=== PATIENT | female | born 1985 | race Caucasian/White ===

== ENCOUNTER 2018-05-16 18:26 | Inpatient (IN) | payer SELFPAY ==
[2018-05-16 18:26] VITALS: BP 136/80; PULSE 97; RESP 20; TEMP 37.2; O2SAT 98; BMI 29.5
--- NOTE | 2018-05-16 18:49 | CT_ITS ---
STUDY: CT ABDOMEN AND PELVIS WITH CONTRAST REASON FOR EXAM: Female, 32 years old. Abdominal pain. Please assess for small bowel obstruction RADIATION DOSAGE (If Supplied By Facility): CTDIvol = ( 13.36 ) mGy, DLP = ( 926.40 ) mGycm TECHNIQUE: Transaxial images were obtained from the dome of the diaphragm to the symphysis pubis without oral contrast. 100ml ml of Isovue 300 contrast was administered. Sagittal and coronal images were reconstructed. Individualized dose optimization techniques were used for this CT. COMPARISON: August 23, 2016 CT abdomen and pelvis FINDINGS: Lung bases demonstrate no evidence for consolidative process. Subsegmental atelectasis in the lung bases. No pericardial effusion. Liver and spleen demonstrate no discrete mass. The portal vein is patent. The pancreas are within normal limits. The adrenal glands appear unremarkable. 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 Fecal loading of colonic loops. No free intraperitoneal air. There is submucosal edema and wall thickening of the distal ileum noted with adjacent inflammatory stranding suggestive of acute ileitis. Appendix is mildly dilated. Mild dilatation of the proximal to mid ileum due to narrowing of the distal ileum. Findings are most suggestive of inflammatory bowel disease. Uterus appears prominent with somewhat bicornuate appearance. Please correlate with sonography. Small amount of free fluid in the pelvis. Osseous structures demonstrate no acute abnormalities. No lytic or blastic lesions of the lumbar spine. IMPRESSION:submucosal edema and wall thickening of the distal ileum noted with adjacent inflammatory stranding suggestive of acute ileitis. Appendix is mildly dilated. Mild dilatation of the proximal to mid ileum due to narrowing of the distal ileum. Findings are most suggestive of inflammatory bowel disease. Small amount of free fluid in the pelvis. 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 Please correlate with sonography. Electronically Signed: Steve Taylor, at 21:08 EDT Tel , Service support , CT/Abdomen/Pelvis WITH Contrast
--- NOTE | 2018-05-16 18:51 | ED.VISSUMM ---
- ER Visit Summary Date of Service: 05/16/18 Chief Complaint: Abdominal pain History of Present Illness: The patient is a 32 F presenting with abdominal pain. She states this started a day and a half ago. She has had nausea and vomiting ?1 today. Denies diarrhea or constipation. She complains of diffuse abdominal pain. She has a history of Crohn's disease. She has not been on recent steroids. No past abdominal surgeries. She does not currently have a primary care physician or college specialist. She has had subjective fever and chills. Denies urinary complaints. Denies other complaints. Physical Examination: Vitals are stable. Patient is afebrile. Alert no acute distress. HEENT exam is unremarkable. Neck is supple. Lungs are clear and equal bilaterally. Heart is regular rate and rhythm. Abdomen is soft diffuse tenderness with no rebound or guarding Extremities are unremarkable. Skin is warm and dry. Remainder of exam is unremarkable. Emergency Department Course and Treatment: Patient is given morphine, Zofran, IV fluids. CBC, chemistries unremarkable other than total bili 1.2. Urinalysis unremarkable. HCG negative. CT abdomen and pelvis shows submucosal edema and wall thickening of the distal ileum noted with adjacent inflammatory stranding suggestive of acute ileitis. Appendix is mildly dilated. Mild dilatation of the proximal to mid ileum due to narrowing of the distal ileum. Findings are most suggestive of inflammatory bowel disease. Patient continues to have significant pain was given repeated doses of morphine and Dilaudid. Findings were discussed with Dr. Rand who will see her in consult. Discussed with Dr. Mejia who will admit the patient. Disposition: Admission Impression: Abdominal pain, Crohn's flare This note was generated with [employer] dictation software. It may contain incorrect words, spelling, and punctuation that were not noted in review of the chart prior to signing ED Disposition - Plan for ED Patient: Chief Complaint: Abd Pain Referrals: Care Physician,No Primary [Primary Care Provider] -
[2018-05-16] MEDS: 0.9% Normal Saline 1,000 ML 1000 ML IV (18:59)
[2018-05-16] MEDS: Morphine 4 MG/ML Syringe IV ×2 (19:00→20:03)
[2018-05-16] MEDS: Ondansetron 4 MG/2 ML Vial IV ×2 (19:00→23:55)
[2018-05-16 19:09] LABS: Bacteria 0 SEEN /hpf (None Seen)
[2018-05-16 19:10] LABS: Color, Urine Yellow (Yellow); Glucose, Dipstick Normal (Normal); Ketone-Dipstick 50 mg/dl (Negative); Leukocyte Esterase-Dipstick Negative /ul (Negative); Nitrite-Dipstick Negative (Negative); Occult Blood-Urine 10 /ul (Negative); Protein-Dipstick Negative (Negative); Specific Gravity, Urine 1.025 (1.002-1.030); Urine Bilirubin Dipstick Negative (Negative); Urine Clarity Clear (Clear); Urine Urobilinogen Normal (Normal)
[2018-05-16 19:10] LABS: Absolute Lymphocyte Count 0.78 X10^3/ul (0.83-4.51); Absolute Neutrophil Count 9.5 X10^3/uL (2.0-7.7); Basophil# 0.01 X10^3/uL; Basophil% 0.1 % (0-1); Eosinophil# 0.06 X10^3/uL; Eosinophils% 0.6 % (0-5); Hematocrit 40.7 % (37-47); Lymphocyte # 0.78 X10^3/ul (4.0); Lymphocyte % 7.2 % (19-41); Mean Corp Hgb Conc 34.4 g/gl (32-36); Mean Corpuscular Hgb 29.9 pg (27.0-32.0); Mean Platelet Vol. 11.2 fl (6.2-12.0); Monocyte# 0.55 X10^3/uL; Monocyte% 5.1 % (0-10); Neutrophil # 9.46 X10^3/uL (2.7-7.7); Neutrophil % 86.8 % (47-70); Platelet Count 174 K/mm3 (150-450); RBC Distribution Width CV 13.6 % (11.6-14.6); RBC Distribution Width SD 43.1 fl (35.1-43.9); Red Blood Count 4.68 M/mm3 (4.2-5.4); White Blood Count 10.9 K/mm3 (4.4-11.0)
[2018-05-16 19:11] LABS: POSITIVE COUNT NO; POSITIVE DIFFERENTIAL NO; POSITIVE MORPHOLOGY NO
[2018-05-16 19:21] LABS: Squamous Epithelial Cells - UA 0-5 SEEN /hpf (5-10)
[2018-05-16 19:23] LABS: White Blood Cells 0-5 SEEN /hpf (0-5)
[2018-05-16 19:24] LABS: Mucous, Urine 1+ /hpf (<or=2+); Red Blood Cells-Urine 0-5 SEEN /hpf (0-5)
[2018-05-16 19:28] LABS: AST(SGOT) 19 U/L (15-37); Alanine Aminotransfer ALT/SGPT 16 U/L (13-56); Albumin, Serum 3.8 g/dL (3.2-5.0); Alkaline Phosphatase 46 U/L (45-117); Anion Gap 8 (5-15); BUN 12 mg/dL (7-18); BUN/Creat Ratio 16.4 RATIO (10-20); Bilirubin, Direct 0.17 mg/dL (0.00-0.30); Calcium,Total 9.3 mg/dL (8.5-10.1); Chloride 107 mmol/L (98-107); Creatinine, Serum 0.73 mg/dL (0.55-1.02); EST Glomerular Filtration Rate 98 mL/min (>60); Est Glom Filt Rate - Afr Amer 118 mL/min (>60); Estimated Creatinine Clearance 99.55 ml/min; Globulin 4.1 g/dL (2.2-4.2); Glucose 89 mg/dL (74-106); Lipase 109 U/L (73-393); Potassium 3.8 mmol/L (3.5-5.1); Protein, Total 7.9 g/dL (6.4-8.2); Sodium Level 139 mmol/L (136-145)
[2018-05-16 19:34] LABS: Internal QC Validated? YES +Cl - CLEAR BKGD; Pregnancy, Urine Negative Negative
[2018-05-16] MEDS: HYDROmorphone 1 MG/ML Syringe IV (23:19)
[2018-05-16 23:58] VITALS: BP 119/74; PULSE 91; PULSE 92; RESP 16; O2SAT 93
--- NOTE | 2018-05-17 00:02 | PCM.HP.STD ---
Problem List (1) Exacerbation of Crohn's disease of small intestine Status: Acute (2) Obesity Status: Chronic (3) History of cannabis abuse Status: Chronic (4) Crohn's disease Status: Acute (5) Tobacco use Status: Chronic History of Present Illness Date of Admission: 05/17/18 Chief Complaint: abdominal pain The patient is a 32 year old female with a history of Chrohns disease presents to the ER with abdominal pain. The pain began 2 weeks ago but has become much worse over the past two days. She has nausea but denies diarrhea. She has lost her appetite. CBC shows a normal WBC count ,however, there is a shift toward neutrophils. CT scan shows inflammatory bowel flare up and comments on inflammation of the appendix as well. Surgeon consulted by the ER refused to admit this patient. She will be admitted and surgery consult obtained by surgeon in the morning. Past Medical History Past Medical History (Chronic Problems): Chronic Problems Overweight (BMI 25.0-29.9) (Chronic) Obesity (Chronic) History of cannabis abuse (Chronic) Tobacco use (Chronic) Allergies No Known Allergies Allergy (Verified 05/16/18 18:28) Home Medications: Ambulatory Orders Medication Instructions Recorded NK [NK] 05/16/18 Surgical History: no surgical history Psychiatric History: No pertinent psych hx DUMPER BULK SYSTEM History: No pertinent DUMPER BULK SYSTEM history Smoking Status: Current some day smoker - *Family History Maternal History Items: Heart Disease Paternal History Items: Heart Disease Review of Systems Constitutional: Reports: Anorexia, Fever. Denies: Chills, Weight Change HEENT: Denies: Head Aches, Sinus Congestion, Sinus Drainage Cardiovascular: Denies: Chest Pain, Palpitations Respiratory: Denies: Cough, Shortness of breath at rest, Sputum production Gastrointestinal: Reports: Abdominal Pain, Nausea. Denies: Vomiting Genitourinary: Denies: Dysuria Musculoskeletal: Denies: Joint Pain, Joint Tenderness Skin: Denies: Rash, Wounds Neurological: Denies: Numbness, Tingling, Focal weakness Psychiatric: Denies: Anxiety, Depression, Homicidal Ideations, Suicidal Ideations Hematologic/ Lymphatic: Denies: Easy Bruising, Easy Bleeding VTE Information - Inpt Only VTE Present on Admission: No VTE Mechan Device Prophylaxis: None VTE Pharm Prophylaxis ordered?: Yes - Physical Exam General: Alert, Oriented x3, Cooperative HEENT: Atraumatic, Normocephalic Neck: Supple, No JVD, Negative Carotid Bruits Lungs: Clear to auscultation, Normal air movement Cardiovascular: Regular rate, Regular Rhythm, Normal S1, Normal S2, No murmurs Abdomen: Bowel Sounds Present, Tender - generalized lower abdomen Extremities: No edema, Capillary Refill Less than 3 Seconds Skin: No rashes, No breakdown Musculoskeletal: No Tenderness to Palpation of Joints or Extremities Neurological: Neuro grossly intact Psych/Mental Status: Normal Affect, Appropriate Vital Signs Temp Pulse Resp BP Pulse Ox 99.0 F 92 16 119/74 93 05/16/18 18:26 05/16/18 23:58 05/16/18 23:58 05/16/18 23:58 05/16/18 23:58 Oxygen Delivery Method Room Air Weight: 177 lb 11.081 oz Body Mass Index (BMI) 29.5 Laboratory Tests Past 24 Hrs 05/16/18 05/16/18 05/16/18 18:45 18:45 19:00 WBC 10.9 RBC 4.68 Hgb 14.0 Hct 40.7 MCV 87.0 MCH 29.9 MCHC 34.4 RDW 13.6 RDW Differential 43.1 Plt Count 174 MPV 11.2 Immature Gran % (Auto) 0.200 Neut % (Auto) 86.8 H Lymph % (Auto) 7.2 L Cass % (Auto) 5.1 Eos % (Auto) 0.6 Baso % (Auto) 0.1 Absolute Neuts (auto) 9.5 H Absolute Lymphs (auto) 0.78 L Total Counted Not Reportable Sodium 139 Potassium 3.8 Chloride 107 Carbon Dioxide 24.0 Anion Gap 8 BUN 12 Creatinine 0.73 Estim Creat Clear Calc 99.55 Est GFR (MDRD) Af Amer 118 Est GFR (MDRD) Non-Af 98 BUN/Creatinine Ratio 16.4 Glucose 89 Calcium 9.3 Total Bilirubin 1.20 H Direct Bilirubin 0.17 AST 19 ALT 16 Alkaline Phosphatase 46 Total Protein 7.9 Albumin 3.8 Globulin 4.1 Lipase 109 Urine Color Yellow Urine Clarity Clear Urine pH 5.0 Ur Specific [place] 1.025 Urine Protein Negative Urine Glucose (UA) Normal Urine Ketones 50 H Urine Occult Blood 10 H Urine Nitrite Negative Urine Bilirubin Negative Urine Urobilinogen Normal Ur Leukocyte Esterase Negative Urine RBC 0-5 SEEN Urine WBC 0-5 SEEN Ur Squamous Epith Cells 0-5 SEEN Urine Bacteria 0 SEEN Urine Mucus 1+ Urine Test 05/16/18 19:00 WBC RBC Hgb Hct MCV MCH MCHC RDW RDW Differential Plt Count MPV Immature Gran % (Auto) Neut % (Auto) Lymph % (Auto) Cass % (Auto) Eos % (Auto) Baso % (Auto) Absolute Neuts (auto) Absolute Lymphs (auto) Total Counted Sodium Potassium Chloride Carbon Dioxide Anion Gap BUN Creatinine Estim Creat Clear Calc Est GFR (MDRD) Af Amer Est GFR (MDRD) Non-Af BUN/Creatinine Ratio Glucose Calcium Total Bilirubin Direct Bilirubin AST ALT Alkaline Phosphatase Total Protein Albumin Globulin Lipase Urine Color Urine Clarity Urine pH Ur Specific [place] Urine Protein Urine Glucose (UA) Urine Ketones Urine Occult Blood Urine Nitrite Urine Bilirubin Urine Urobilinogen Ur Leukocyte Esterase Urine RBC Urine WBC Ur Squamous Epith Cells Urine Bacteria Urine Mucus Urine Test Negative Assessment/Plan All Active Problems Exacerbation of Crohn's disease of small intestine (Acute) Crohn's disease (Acute) Chronic Problems Overweight (BMI 25.0-29.9) (Chronic) Obesity (Chronic) History of cannabis abuse (Chronic) Tobacco use (Chronic) Plan - admit to medical surgical floor - consult Dr Yan in the AM (per request of patient) - NPO tonight - IV normal saline at 100cc/hr - dilaudid 1mg IV q 2hrs prn pain - zofran 4mg IV q 6hrs prn nausea - cbc, CMP in am - ciprofloxacin and flagyl will be started - LMWH for DVT prophylaxis Code Visit Inpatient E&M: 81359 Init Hosp L3
[2018-05-17 01:01] VITALS: BMI 29.9
[2018-05-17 01:04] VITALS: BP 123/70; PULSE 91; RESP 16; TEMP 37.6; O2SAT 97
[2018-05-17] MEDS: 0.9% Normal Saline 1,000 ML 100 ML IV (01:24)
[2018-05-17] MEDS: HYDROmorphone 1 MG/ML Syringe IV ×3 (01:25→08:11)
[2018-05-17] MEDS: Ciprofloxacin 400 MG/200 ML BAG 200 MG IV (02:20)
[2018-05-17] MEDS: Ondansetron 4 MG/2 ML Vial IV ×2 (06:06→11:48)
[2018-05-17 06:50] VITALS: BP 119/71; PULSE 94; RESP 16; TEMP 38; O2SAT 96
[2018-05-17 08:15] VITALS: BP 111/61; PULSE 85; RESP 16; TEMP 37.8; O2SAT 94
--- NOTE | 2018-05-17 09:22 | CASEMGMT ---
Social Work Assessment Referral Date: 05/17/2018 Date of Assessment: 05/17/2018 Reason for consult: Pt is listed as Self-Pay Informant: JAMES Personal Status: SW met with pt as pt is listed as self-pay. SW introduced self and role at [facility]. Pt is alert and orientated x4. Pt states that she lives with her and she has a good relationship with her . Pt states that she feels supported at home. 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 Pt confirms that she doesn't have insurance. Pt states that she applied for Medicaid about two years ago but didn't qualify. Pt is receptive to receiving Medicaid application and to fill it out again. Pt denied filling out Medicaid at this time. JAMES informed pt that if she fills out the Medicaid application before leaving [facility] this worker can fax application to [facility] or if pt wishes to completed application at home pt can send completed application to S. Pt states understanding. JAMES provided pt with Medicaid application, HCAP application, [facility], and prescription assistance information. Pt denied additional needs or concerns at this time. Substance Abuse Hx: Pt states that she smokes about a pack of cigarettes a week. Pt denied additional substance abuse hx. Mental Health Hx: Pt denied Plan: Pt to return home at discharge. JAMES provided pt with Medicaid application, HCAP application, [facility], and prescription assistance information. Sulema Atkins AVIATION WARFARE SYSTEMS OPERATOR, AIRCRAFT LANDING GEAR INSPECTOR
[2018-05-17] MEDS: Mesalamine 1.2 GM Tablet 2.4 GM PO (09:27)
[2018-05-17 11:30] VITALS: BP 114/67; PULSE 86; RESP 16; TEMP 37.4; O2SAT 94
--- NOTE | 2018-05-17 11:34 | CON.PCM_ITS ---
Reason for Consult Date of Consultation: 05/17/18 History of Present Illness: The patient is a 32 year old F with a history of ileal Crohn's disease. The patient was diagnosed with Crohn's disease approximately 8-10 years previously. She is on the past been on oral medications, but she is not taking any medications currently due to cost and failure to follow-up. She denies abdominal surgery, but had previously undergone exam under anesthesia and fistulotomy for perianal abscess/fistula in 2013. patient's most recent listed colonoscopy was January [address] Gorge Yan, who found entirely normal colon and Crohn's ileitis. The patient notes intermittent periods of abdominal discomfort. This most recent episode started 2 weeks previously. Normally she feels she can relatively ride these events out. However, for the past few days she noticed increasing abdominal distention, increased nausea and vomiting with decreased stool output and decreased flatulence, now to the point of obstipation for the last 2 days. The patient presents to [facility] emergency department. She underwent CT scan of the abdomen pelvis which demonstrated significant ileal inflammation and thickening. Laboratory studies were relatively unremarkable. I was consulted. 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 Denies: Chills, Fever, Weight Change HEENT: Denies: Head Aches, Sinus Congestion, Sinus Drainage Cardiovascular: Denies: Chest Pain, Palpitations Respiratory: Denies: Cough, Shortness of breath at rest, Sputum production Gastrointestinal: Reports: Abdominal Pain, Nausea, Vomiting Genitourinary: Denies: Dysuria Musculoskeletal: Denies: Joint Pain, Joint Tenderness Skin: Denies: Rash, Wounds Neurological: Denies: Numbness, Tingling, Focal weakness Psychiatric: Denies: Anxiety, Depression, Homicidal Ideations, Suicidal Ideations Hematologic/ Lymphatic: Denies: Easy Bruising, Easy Bleeding - Physical Exam General: Alert, Oriented x3, Cooperative HEENT: Atraumatic, PERRLA, EOMI, Normocephalic Neck: Supple, No JVD, Negative Carotid Bruits Lungs: Clear to auscultation, Normal air movement Cardiovascular: Regular rate, No murmurs Abdomen: Bowel Sounds Present, Soft, Hypoactive Bowel Sounds, Tender - maximal in the right lower quadrant with localized tenderness. No diffuse peritoneal signs Extremities: No edema, Capillary Refill Less than 3 Seconds Skin: No rashes, No breakdown Musculoskeletal: No Tenderness to Palpation of Joints or Extremities Neurological: Cranial nerves II-XII grossly intact Psych/Mental Status: Normal Affect, Appropriate Vital Signs Temp Pulse Resp BP Pulse Ox 99.4 F H 86 16 114/67 94 05/17/18 11:30 05/17/18 11:30 05/17/18 11:30 05/17/18 11:30 05/17/18 11:30 Oxygen Delivery Method Room Air Weight: 81.5 kg Body Mass Index (BMI) 29.9 Intake and Output for Last 24 Hours 05/15/18 05/16/18 05/17/18 23:59 23:59 23:59 Intake Total 469 / 469 Balance 469 / 469 Assessment/Plan All Active Problems Exacerbation of Crohn's disease of small intestine (Acute) Crohn's disease (Acute) exacerbation of ileal Crohn's disease, ileus, obstructive picture. The patient was started on IV steroids. I would add a 5-ASA product to see if these work synergistically and improve her symptomatology. While 5-ASA products are somewhat controversial for ileal Crohn's versus colonic Crohn's, given the patient's history of poor medical access and poor prescription coverage, steroids may have side effect profile she does not like and if a 5- ASA product is covered, this may improve her compliance in the future. 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 I recommend case management be contacted to attempt to obtain Medicaid coverage for the patient CT scan demonstrates significant cecal inflammation with proximal poor progression of oral contrast from the CAT scan. Between her clinical obstipation and nausea and vomiting, I would maintain the patient on sips of liquids until she has improved bowel function. I plan to obtain an abdominal multiview in the morning to assess for progression of the oral contrast.
[2018-05-17] MEDS: 0.9% Normal Saline 1,000 ML 150 ML IV ×2 (12:46→19:20)
[2018-05-17] MEDS: Acetaminophen 325 MG Tablet 650 MG PO ×2 (13:58→20:13)
[2018-05-17 14:04] VITALS: BP 129/71; PULSE 84; RESP 16; TEMP 37.7; O2SAT 94
[2018-05-17 20:20] VITALS: BP 127/74; PULSE 60; RESP 16; TEMP 36.8; O2SAT 96
[2018-05-18] MEDS: 0.9% Normal Saline 1,000 ML 150 ML IV ×2 (02:04→09:30)
[2018-05-18 02:08] VITALS: BP 125/72; PULSE 68; RESP 18; TEMP 36.8; O2SAT 98
--- NOTE | 2018-05-18 06:00 | RAD_ITS ---
STUDY: X-RAY - ABDOMEN/PELVIS REASON FOR EXAM: Female, 32 years old. Abdominal pain. TECHNIQUE: AP supine and upright views of the abdomen and pelvis. COMPARISON: Comparison is made with prior study dated August 26, [address] scan the abdomen dated May 16, 2018.. FINDINGS: Mild increased markings at the left lung base suggestive of atelectasis. There is an unremarkable bowel gas pattern. Contrast is seen within the colon. There is no evidence of obstruction. There is no demonstrated free abdominal air. The visualized liver, spleen and kidneys are grossly normal in size and morphology. Normal soft tissue structures. Normal visualized osseous structures. RAD/Abd Inc Decub and/or Erect IMPRESSION: Oral contrast is seen within the colon. Electronically Signed: Nigel Santoyo MD at 8:21 EDT Tel [phone], Service support ,
[2018-05-18 08:00] VITALS: BP 126/82; PULSE 60; RESP 16; TEMP 36.9; O2SAT 97
[2018-05-18] MEDS: Mesalamine 1.2 GM Tablet 2.4 GM PO (08:19)
--- NOTE | 2018-05-18 10:32 | PCM.PN.SRG ---
Subjective: stomach feels better, some flatus - Physical Exam General: Alert, Oriented x3, Cooperative Lungs: Clear to auscultation, Normal air movement Cardiovascular: Regular rate, No murmurs Abdomen: Bowel Sounds Present, Soft, Tender - RLQ improved Vital Signs Temp Pulse Resp BP Pulse Ox 98.5 F 60 16 126/82 H 97 05/18/18 08:00 05/18/18 08:00 05/18/18 08:00 05/18/18 08:00 05/18/18 08:00 Oxygen Delivery Method Room Air Weight: 81.5 kg Body Mass Index (BMI) 29.9 Intake and Output for Last 24 Hours 05/16/18 05/17/18 05/18/18 23:59 23:59 23:59 Intake Total 2345 / 2345 845 / 845 Balance 2345 / 2345 845 / 845 Medical Necessity - Tobacco Use Smoking Status: Current some day smoker Assessment/Plan All Active Problems Exacerbation of Crohn's disease of small intestine (Acute) Crohn's disease (Acute) exacerbation of ileal Crohn's disease, ileus, obstructive picture. The patient was started on IV steroids. I would add a 5-ASA product to see if these work synergistically and improve her symptomatology. While 5-ASA products are somewhat controversial for ileal Crohn's versus colonic Crohn's, given the patient's history of poor medical access and poor prescription coverage, steroids may have side effect profile she does not like and if a 5-ASA product is covered, this may improve her compliance in the future. ideally, daily budesonide orally would be her preferred custodial medication, but doubt there will be affordable for the patient. I recommend case management be contacted to attempt to obtain Medicaid coverage for the patient CT scan demonstrates significant cecal inflammation with proximal poor progression of oral contrast from the CAT scan. Abdominal multiview this morning demonstrated progression of the oral contrast to the colon and no obstructive pattern. will start liquids
[2018-05-18 15:00] VITALS: BP 128/79; PULSE 66; RESP 16; TEMP 36.9; O2SAT 100
--- NOTE | 2018-05-18 15:54 | PCM.DC ---
You will use the following diet at home:: No restrictions Your food should be the consistency of: Regular Your liquids should be the consistency of: Regular/Thin Discharge Activity: Return to Normal Activity Allergies/Adverse Reactions: Allergies No Known Allergies Allergy (Verified 05/16/18 18:28) Medications to take at Discharge Hydrocodone/Acetaminophen [[place] 5-325 Tablet] 1 - 2 ea PO 4X/DAY PRN PRN #60 tab 05/18/18 Prednisone [Deltasone] 60 mg PO UD #100 tab 05/18/18 The following prescriptions were given: Hydrocodone/Acetaminophen [[place] 5-325 Tablet] 1 - 2 ea PO 4X/DAY PRN PRN #60 tab PRN Reason: Pain Prednisone [Deltasone] 60 mg PO UD #100 tab Primary Care Physician: Care Physician,No Primary [Primary Care Provider] - Please follow up with your Primary Care Physician in: see the free clinic within 2 -3 weeks Test Results: Test results from this visit will be discussed in further detail at your follow-up appointment, if applicable.
--- NOTE | 2018-05-21 16:30 | PCM.DC.SUM ---
Discharge Date and Diagnosis Date of Admission: 05/17/18 Date of Discharge: 05/18/18 - Primary Discharge Diagnosis #1 acute flare of Crohn's disease - Secondary Discharge Diagnosis Chronic Problems Overweight (BMI 25.0-29.9) (Chronic) Obesity (Chronic) History of cannabis abuse (Chronic) Tobacco use (Chronic) Hospital Course and Treatment Operations: None Procedures: None Summary of Care Provided: The patient is a 32 year old F seen in the emergency room at [facility] with chief complaint of right lower quadrant abdominal pain for 2 weeks. Patient had a history of Crohn's disease in the past and was no longer taking any medication for the disease. Workup in the emergency room included a CT of the abdomen and pelvis which indicated terminal ileitis, patient was admitted to [place] [address], placed on IV corticosteroids, was seen by general surgery, and general surgery placed her on mesalamine. Following day, patient's symptoms improved, she was seen and examined on that day and felt to be in stable condition for discharge home. Patient was instructed to follow-up at the [facility] and she was given application apply for Medicaid. Discharge Activity: Return to Normal Activity Home Medications: Medications to take at Discharge Hydrocodone/Acetaminophen [[place] 5-325 Tablet] 1 - 2 ea PO 4X/DAY PRN PRN #60 tab 05/18/18 Prednisone [Deltasone] 60 mg PO UD #100 tab 05/18/18 Following Prescrptions Were Given to Patient: Hydrocodone/Acetaminophen [[place] 5-325 Tablet] 1 - 2 ea PO 4X/DAY PRN PRN #60 tab PRN Reason: Pain Prednisone [Deltasone] 60 mg PO UD #100 tab Primary Care Physician: Care Physician,No Primary [Primary Care Provider] - Please follow up with your Primary Care Physician in: see the free clinic within 2 -3 weeks Disposition: Home Minutes spent on discharge:: 32 Patient Condition:: Stable Medical Necessity - Tobacco Use Smoking Status: Current some day smoker Meaningful Use Info Meaningful Use Diagnoses (Choose all that apply): None applicable Code Visit Inpatient E&M: 02742 Disch Hosp
--- NOTE | 2018-05-21 16:33 | DS.PCM_ITS ---
Discharge Date and Diagnosis Date of Admission: 05/17/18 Date of Discharge: 05/18/18 - Primary Discharge Diagnosis #1 acute flare of Crohn's disease - Secondary Discharge Diagnosis Chronic Problems Overweight (BMI 25.0-29.9) (Chronic) Obesity (Chronic) History of cannabis abuse (Chronic) Tobacco use (Chronic) Hospital Course and Treatment Operations: None Procedures: None Summary of Care Provided: The patient is a 32 year old F seen in the emergency room at [facility] with chief complaint of right lower quadrant abdominal pain for 2 weeks. Patient had a history of Crohn's disease in the past and was no longer taking any medication for the disease. Workup in the emergency room included a CT of the abdomen and pelvis which indicated terminal ileitis, patient was admitted to [place] [address], placed on IV corticosteroids, was seen by general surgery , and general surgery placed her on mesalamine. Following day, patient's symptoms improved, she was seen and examined on that day and felt to be in stable condition for discharge home. Patient was instructed to follow-up at the free [facility] and she was given application apply for Medicaid. Discharge Activity: Return to Normal Activity Home Medications: Medications to take at Discharge Hydrocodone/Acetaminophen [Morton 5-325 Tablet] 1 - 2 ea PO 4X/DAY PRN PRN #60 tab 05/18/18 Prednisone [Deltasone] 60 mg PO UD #100 tab 05/18/18 Following Prescrptions Were Given to Patient: Hydrocodone/Acetaminophen [Morton 5-325 Tablet] 1 - 2 ea PO 4X/DAY PRN PRN #60 tab PRN Reason: Pain Prednisone [Deltasone] 60 mg PO UD #100 tab Primary Care Physician: Care Physician,No Primary [Primary Care Provider] - Please follow up with your Primary Care Physician in: see the free clinic within 2 -3 weeks Disposition: Home Minutes spent on discharge:: 32 Patient Condition:: Stable Medical Necessity - Tobacco Use Smoking Status: Current some day smoker Meaningful Use Info Meaningful Use Diagnoses (Choose all that apply): None applicable Code Visit Inpatient E&M: 47353 Disch Hosp
== END 2018-05-18 16:40 | disposition home or self-care (01) | DRG 386 ==
LOC: ED 19:19 → MS3 05-17 00:37
PROVIDERS: Admitting Provider Family Medicine; Emergency Provider Emergency Medicine; Visit Provider Internal Medicine
DX: K50.018 Crohn's disease of small intestine with other complication (principal); K56.7 Ileus, unspecified; E66.9 Obesity, unspecified; Z68.29 Body mass index [BMI] 29.0-29.9, adult; F17.200 Nicotine dependence, unspecified, uncomplicated
CPT/HCPCS: 74019; 74177; 80048; 80076; 81001; 81025; 83690; 85025; 97802; 99283; J7030; Q9967; A4216; J0744; J2405

== ENCOUNTER → 2019-01-09 15:30 | Outpatient (CLI) | payer OTHER, SELFPAY ==
[2018-05-17 01:01] VITALS: BMI 29.9
[2019-01-09 17:52] LABS: Hematocrit 41.6 % (37-47); Hemoglobin 13.4 g/dl (12.0-15.0); Mean Corp Hgb Conc 32.2 g/gl (32-36); Mean Platelet Vol. 10.8 fl (6.2-12.0); Platelet Count 231 K/mm3 (150-450); RBC Distribution Width CV 12.8 % (11.6-14.6); RBC Distribution Width SD 41.7 fl (35.1-43.9); Red Blood Count 4.62 M/mm3 (4.2-5.4); White Blood Count 9.4 K/mm3 (4.4-11.0)
[2019-01-09 18:05] LABS: Scan Indicated on CBC? Y/N NO
[2019-01-09 18:07] LABS: Erythrocyte Sedimentation Rate 26 mm/hr (0-20)
[2019-01-09 19:14] LABS: ALB/GLOB Ratio 1.1 RATIO (0.9-2.4); AST(SGOT) 12 U/L (15-37); Alanine Aminotransfer ALT/SGPT 18 U/L (13-56); Albumin, Serum 3.9 g/dL (3.2-5.0); Alkaline Phosphatase 49 U/L (45-117); Anion Gap 6 (5-15); BUN 10 mg/dL (7-18); BUN/Creat Ratio 13.6 RATIO (10-20); CRP 5.46 mg/L (0.0-3.0); Calcium,Total 8.7 mg/dL (8.5-10.1); Chloride 107 mmol/L (98-107); Creatinine, Serum 0.74 mg/dL (0.55-1.02); EST Glomerular Filtration Rate 96 mL/min (>60); Est Glom Filt Rate - Afr Amer 117 mL/min (>60); Globulin 3.7 g/dL (2.2-4.2); Glucose 81 mg/dL (74-106); Potassium 3.6 mmol/L (3.5-5.1); Protein, Total 7.6 g/dL (6.4-8.2); Sodium Level 140 mmol/L (136-145)
== END ==
PROVIDERS: Family Provider Family Medicine; PCP Family Medicine; Referring Provider Internal Medicine Gastroenterology; Visit Provider Internal Medicine Gastroenterology
DX: K50.90 Crohn's disease, unspecified, without complications (principal)
CPT/HCPCS: 36415; 80053; 85027; 85652; 86140

== ENCOUNTER 2019-02-13 06:40 | Emergency (ER) | payer OTHER, SELFPAY ==
[2019-02-13 06:44] VITALS: BP 130/95; PULSE 68; RESP 18; TEMP 36.6; O2SAT 100; BMI 28.0
--- NOTE | 2019-02-13 07:15 | CT_ITS ---
STUDY: CT ABDOMEN AND PELVIS WITH CONTRAST REASON FOR EXAM: Female, 33 years old. Abdominal pain, nausea and vomiting, flareup of Crohn's? History of Crohn's disease and fistula. RADIATION DOSAGE (If Supplied By Facility): CTDIvol = ( 11.15 ) mGy, DLP = ( 641.56 ) mGycm TECHNIQUE: Transaxial images were obtained from the dome of the diaphragm to the symphysis pubis with oral contrast. 100CC ml of Isovue 300 contrast was administered. Sagittal and coronal images were reconstructed. Individualized dose optimization techniques were used for this CT. COMPARISON: 05/16/2018 FINDINGS: Body wall soft tissues: No acute process. Osseous structures: No acute process. Inferior chest: No acute process. Hepatobiliary: Normal. Pancreas: No acute process. Spleen: Normal. Adrenal glands: Normal. 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 Normal nephrogram. Nondilated collecting systems. Nondilated ureters. Unremarkable urinary bladder. Pelvic floor and sidewalls and retroperitoneum: No mass or adenopathy. Vasculature: Minimal atherosclerosis. Stomach: No acute process. Small bowel and mesentery: Mild ectasia of the mid ileum, fluid-filled, measuring up to 3.3 cm in diameter. Duodenum, jejunum and proximal ileum are normal. Distal ileum, long segment wall thickening/inflammation, mucosal hyperemia, including the terminal ileum. A single blind-ending fistula tract just to the right of midline centered on axial image 84 concordant with that previously seen on imaging of 05/16/2018. Additional slender fistulization between loops of small bowel, ileal ileal. Associated with matting/cicatrization between the bowel loops. Very similar features of the ileum compared to that study. The features are consistent with acute ileitis, without bowel obstruction. Large bowel: Normal appendix. Unremarkable large bowel and rectum. Free fluid or free air: None. CT/Abdomen/Pelvis WITH Contrast IMPRESSION: Inflammation of the distal ileum. Ileomesenteric and ileal-ileal fistulae. Very similar features were seen on prior imaging of 2018. Electronically Signed: Michael Motley MD at 10:50 EDT Tel , Service support ,
[2019-02-13] MEDS: 0.9% Normal Saline 1,000 ML 125 ML IV (07:37)
[2019-02-13] MEDS: Ondansetron 4 MG/2 ML Vial IV (07:38)
[2019-02-13] MEDS: Morphine 4 MG/ML Syringe IV ×3 (07:38→13:52)
[2019-02-13 08:01] LABS: Absolute Lymphocyte Count 1.67 X10^3/ul (0.83-4.51); Absolute Neutrophil Count 9.4 X10^3/uL (2.0-7.7); Basophil# 0.02 X10^3/uL; Basophil% 0.2 % (0-1); Eosinophil# 0.05 X10^3/uL; Eosinophils% 0.4 % (0-5); Hemoglobin 14.3 g/dl (12.0-15.0); Lymphocyte # 1.67 X10^3/ul (4.0); Lymphocyte % 13.9 % (19-41); Mean Corpuscular Hgb 29.9 pg (27.0-32.0); Mean Corpuscular Volume 87.7 fL (81-99); Mean Platelet Vol. 10.5 fl (6.2-12.0); Monocyte# 0.88 X10^3/uL; Monocyte% 7.3 % (0-10); Neutrophil # 9.37 X10^3/uL (2.7-7.7); Neutrophil % 78.1 % (47-70); Platelet Count 246 K/mm3 (150-450); RBC Distribution Width CV 13.8 % (11.6-14.6); RBC Distribution Width SD 44.4 fl (35.1-43.9); Red Blood Count 4.79 M/mm3 (4.2-5.4)
[2019-02-13 08:02] LABS: POSITIVE COUNT NO; POSITIVE DIFFERENTIAL NO; POSITIVE MORPHOLOGY NO
[2019-02-13 08:12] LABS: ALB/GLOB Ratio 0.9 RATIO (0.9-2.4); AST(SGOT) 17 U/L (15-37); Alanine Aminotransfer ALT/SGPT 17 U/L (13-56); Albumin, Serum 3.8 g/dL (3.2-5.0); Alkaline Phosphatase 43 U/L (45-117); Anion Gap 8 (5-15); BUN 16 mg/dL (7-18); BUN/Creat Ratio 19.1 RATIO (10-20); Calcium,Total 9.1 mg/dL (8.5-10.1); Chloride 108 mmol/L (98-107); Creatinine, Serum 0.84 mg/dL (0.55-1.02); EST Glomerular Filtration Rate 83 mL/min (>60); Est Glom Filt Rate - Afr Amer 100 mL/min (>60); Estimated Creatinine Clearance 92.63 ml/min; Globulin 4.1 g/dL (2.2-4.2); Glucose 109 mg/dL (74-106); Lipase 127 U/L (73-393); Potassium 4.1 mmol/L (3.5-5.1); Protein, Total 7.9 g/dL (6.4-8.2); Sodium Level 140 mmol/L (136-145)
[2019-02-13 08:40] LABS: Lactic Acid 0.6 mmol/L (0.4-2.0)
[2019-02-13 08:49] LABS: Mucous, Urine 0 SEEN /hpf (<or=2+); Red Blood Cells-Urine 0 SEEN /hpf (0-5)
[2019-02-13 08:50] LABS: Color, Urine Yellow (Yellow); Glucose, Dipstick Normal (Normal); Ketone-Dipstick 5 mg/dl (Negative); Leukocyte Esterase-Dipstick 25 /ul (Negative); Nitrite-Dipstick Negative (Negative); Occult Blood-Urine Negative /ul (Negative); Protein-Dipstick Negative (Negative); Urine Clarity Clear (Clear); Urine Urobilinogen Normal (Normal)
[2019-02-13 08:52] LABS: Urine Bilirubin Dipstick 1 mg/dL (Negative)
[2019-02-13 08:59] LABS: Bacteria RARE /hpf (None Seen); Squamous Epithelial Cells - UA 0-5 SEEN /hpf (5-10); White Blood Cells 0-5 SEEN /hpf (0-5)
[2019-02-13 09:46] LABS: Internal QC Validated? YES +Cl - CLEAR BKGD; Pregnancy, Serum, hCG Quali. NEGATIVE Negative
[2019-02-13 11:04] VITALS: RESP 18
--- NOTE | 2019-02-13 11:33 | NURSING ---
CALLED [facility] TRANSFER LINE FOR DR JUDGE
--- NOTE | 2019-02-13 12:46 | PCA ---
[facility] CALLED BACK DR MILES ACCUPTING DOCTOR WANTING FOR BED
--- NOTE | 2019-02-13 12:57 | ED.VISSUMM ---
- ER Visit Summary Date of Service: 02/13/19 Chief Complaint: [Abdominal pain] History of Present Illness: The patient is a 33 F [presents to the emergency department complaint of abdominal pain that she is had since around 2 AM. Patient complains of nausea and vomiting. She did have one episode of diarrhea yesterday. Patient feels like she might be having a Crohn's flareup. Patient currently seeing Dr. Connolly for her Crohn's. Patient currently taking budesonide. She denies fevers. She denies blood in her stool or black tarry stools. Patient states she had a colonoscopy 2 weeks ago and more testing was ordered as an outpatient for her to determine if she is getting to see a surgeon.] Physical Examination: [HEENT-PERRLA, EOMI. Cranial nerves II through XII grossly intact. TMs clear. Mucous membranes moist. No adenopathy. Cardiovascular-regular rate and rhythm without murmur or ectopy Lungs-clear to auscultation, chest wall stable without crepitus or subcu emphysema Abdomen-normoactive bowel sounds, soft. Patient has diffuse tenderness over the lower abdomen including the right lower quadrant, suprapubic, and left lower quadrant. There is some guarding. There is no rebound, rigidity, or perineal signs. Extremities-intact ?4, normal range of motion, normal pulses, atraumatic] Test Results: [CBC with differential obtained showed a white blood cell count of 12,000, hemoglobin 14, hematocrit 42, placed 246. Chemistries unremarkable. LFTs unremarkable. Lipase is 1.7. Urinalysis was normal. Lactate was 0.6. hCG was negative. CT scan was obtained of the abdomen pelvis with IV and p.o. contrast that showed inflammatory changes to the terminal ileum and possibility of fistula small bowel to small bowel. Some of the changes appear to be chronic. No evidence for bowel obstruction noted.] Emergency Department Course and Treatment: [Case was discussed with general surgeon on-call Dr. Michael Yan who evaluated the CT scan and recommended that patient be transferred to tertiary care facility where she could be evaluated by colorectal surgery. Given the patient's insurance of [facility] she requested to go to [facility] and she was accepted under the care of Dr. Altamirano.] Treatment Plan: [Transfer to [facility] for further treatment.] Disposition: [Transfer] Impression: [Abdominal pain Crohn's flareup] This note was generated with [employer] dictation software. It may contain incorrect words, spelling, and punctuation that were not noted in review of the chart prior to signing ED Disposition - Plan for ED Patient: Referrals: Melinda Teague DO [Primary Care Provider] -
--- NOTE | 2019-02-13 13:00 | ED.DCSUM_ITS ---
- ER Visit Summary Date of Service: 02/13/19 Chief Complaint: [Abdominal pain] History of Present Illness: The patient is a 33 F [presents to the emergency department complaint of abdominal pain that she is had since around 2 AM. Patient complains of nausea and vomiting. She did have one episode of diarrhea yesterday. Patient feels like she might be having a Crohn's flareup. Patient currently seeing Dr. Connolly for her Crohn's. Patient currently taking budesonide. She denies fevers. She denies blood in her stool or black tarry stools. Patient states she had a colonoscopy 2 weeks ago and more testing was ordered as an outpatient for her to determine if she is getting to see a surgeon.] Physical Examination: [HEENT-PERRLA, EOMI. Cranial nerves II through XII grossly intact. TMs clear. Mucous membranes moist. No adenopathy. Cardiovascular-regular rate and rhythm without murmur or ectopy Lungs-clear to auscultation, chest wall stable without crepitus or subcu emphysema Abdomen-normoactive bowel sounds, soft. Patient has diffuse tenderness over the lower abdomen including the right lower quadrant, suprapubic, and left lower quadrant. There is some guarding. There is no rebound, rigidity, or perineal signs. Extremities-intact ?4, normal range of motion, normal pulses, atraumatic] Test Results: [CBC with differential obtained showed a white blood cell count of 12,000, hemoglobin 14, hematocrit 42, placed 246. Chemistries unremarkable. LFTs unremarkable. Lipase is 1.7. Urinalysis was normal. Lactate was 0.6. hCG was negative. CT scan was obtained of the abdomen pelvis with IV and p.o. contrast that showed inflammatory changes to the terminal ileum and possibility of fistula small bowel to small bowel. Some of the changes appear to be chronic. No evidence for bowel obstruction noted.] Emergency Department Course and Treatment: [Case was discussed with general surgeon on-call Dr. Michael Yan who evaluated the CT scan and recommended that patient be transferred to tertiary care facility where she could be evaluated by colorectal surgery. Given the patient's insurance of [facility] she requested to go to [facility] and she was accepted under the care of Dr. Dipti shelley.] Treatment Plan: [Transfer to [facility] for further treatment.] Disposition: [Transfer] Impression: [Abdominal pain Crohn's flareup] This note was generated with [employer] dictation software. It may contain incorrect words, spelling, and punctuation that were not noted in review of the chart prior to signing ED Disposition - Plan for ED Patient: Referrals: Melinda Teague DO [Primary Care Provider] -
--- NOTE | 2019-02-13 13:24 | NURSING ---
[facility] [id number] REPORT [phone]
[2019-02-13] MEDS: 0.9% Normal Saline 1,000 ML 150 ML IV (13:51)
[2019-02-13 14:00] VITALS: BP 120/78; PULSE 61; RESP 18; TEMP 36.8; O2SAT 96
--- NOTE | 2019-02-13 14:11 | NURSING ---
1405 CALLED [facility]ARE FOR TRANSPORT
== END 2019-02-13 14:28 | disposition short-term general hospital (02) ==
LOC: ED 07:21
PROVIDERS: Emergency Provider Emergency Medicine; Family Provider Family Medicine; PCP Family Medicine
DX: K50.90 Crohn's disease, unspecified, without complications (principal); R10.30 Lower abdominal pain, unspecified; Z72.0 Tobacco use; Z79.899 Other long term (current) drug therapy
CPT/HCPCS: 74177; 80053; 81001; 83605; 83690; 84703; 85025; 96361; 96374; 96375; 96376; 99285; J7030; Q9967; A4216; J2405

== ENCOUNTER → 2019-02-28 08:29 | Outpatient (CLI) | payer OTHER, SELFPAY ==
[2019-02-13 06:44] VITALS: BMI 28.0
--- NOTE | 2019-02-28 08:36 | RAD_ITS ---
PROCEDURE: SMALL BOWEL SERIES DATE OF EXAMINATION: February 28, 2019. INDICATION: Female, 33 years old. Left lower quadrant pain. History of Crohn's disease. PHYSICIAN: Nigel Santoyo M.D. FLUOROSCOPY TIME (if supplied): (0:30) minutes/seconds TECHNIQUE: Radiographic and fluoroscopic images were taken of the small intestine following the ingestion of barium. COMPARISON: None. FINDINGS: A preliminary supine KUB was obtained. There is an unremarkable bowel gas pattern. Fecal material is present throughout the colon. The osseous structures are normal. The patient orally ingested approximately 12 ounces of thin barium Normal visualized fundus, body, and antrum of the stomach. Normal duodenal bulb, C-loop, and proximal jejunum. Normal visualized mucosal folds of the jejunum and ileum. There are no demonstrated dilatations, strictures, or masses of the small intestine. There is no mass displacement of the loops of small intestine. There is a normal motor pattern with barium reaching the colon within approximately 90 minutes. Spot films under fluoroscopic observation demonstrated an abnormal terminal ileum with evidence of mucosal thickening and nodularity. There is also evidence of deformity and inflammatory changes in the cecum. RAD/Small Bowel Series Only IMPRESSION: Findings suggestive of recurrent Crohn's disease in the terminal ileum and cecum. There is no evidence of bowel obstruction. Electronically Signed: Nigel Santoyo, at 14:36 EDT , Service support ,
== END ==
PROVIDERS: Family Provider Family Medicine; PCP Family Medicine; Referring Provider Internal Medicine Gastroenterology; Visit Provider Internal Medicine Gastroenterology
DX: K50.90 Crohn's disease, unspecified, without complications (principal)
CPT/HCPCS: 74250

== ENCOUNTER → 2019-04-11 | Outpatient (CLI) | payer OTHER, SELFPAY ==
[2019-04-13 20:06] LABS: QNTFERON TB Mitogen Value > 10.00 IU/mL (.); QNTFERON TB Nil Value 0.09 IU/mL (.); QNTFERON TB1+ Ag Value 0.09 IU/mL (.); QNTFERON TB2+ Ag Value 0.09 IU/mL (.)
[2019-04-14 11:24] LABS: QNTIFERON TB Positive Criteria Negative (Negative)
== END | disposition home or self-care (01) ==
LOC: LAB.FUTURE 11:15
PROVIDERS: Family Provider Family Medicine; PCP Family Medicine; Referring Provider Internal Medicine Gastroenterology; Visit Provider Internal Medicine Gastroenterology
DX: K50.90 Crohn's disease, unspecified, without complications (principal)
CPT/HCPCS: 36415; 86480

== ENCOUNTER → 2019-05-02 | Outpatient (CLI) | payer OTHER, SELFPAY ==
[2019-05-02 17:27] LABS: Hemoglobin 14.4 g/dL (12.0-15.0); Mean Corp Hgb Conc 33.5 g/dL (32-36); Mean Corpuscular Hgb 29.3 pg (27.0-32.0); Mean Corpuscular Volume 87.6 fL (81-99); Mean Platelet Vol. 10.9 fl (6.2-12.0); Platelet Count 197 K/mm3 (150-450); RBC Distribution Width CV 12.6 % (11.6-14.6); RBC Distribution Width SD 40.9 fl (35.1-43.9); Red Blood Count 4.91 M/mm3 (4.2-5.4); White Blood Count 8.5 K/mm3 (4.4-11.0)
[2019-05-02 17:54] LABS: Erythrocyte Sedimentation Rate 21 mm/hr (0-20)
[2019-05-02 18:07] LABS: CRP 6.65 mg/L (0.0-3.0)
== END | disposition home or self-care (01) ==
LOC: MTLAB 16:58
PROVIDERS: Family Provider Family Medicine; PCP Family Medicine; Referring Provider Internal Medicine Gastroenterology; Visit Provider Internal Medicine Gastroenterology
DX: K50.90 Crohn's disease, unspecified, without complications (principal)
CPT/HCPCS: 36415; 85027; 85652; 86140

== ENCOUNTER → 2019-05-31 | Outpatient (CLI) | payer OTHER, SELFPAY ==
[2019-05-31 12:23] LABS: Erythrocyte Sedimentation Rate 31 mm/hr (0-20)
[2019-05-31 12:26] LABS: Hemoglobin 13.9 g/dL (12.0-15.0); Mean Corp Hgb Conc 33.9 g/dL (32-36); Mean Corpuscular Hgb 29.6 pg (27.0-32.0); Mean Corpuscular Volume 87.2 fL (81-99); Mean Platelet Vol. 11.3 fl (6.2-12.0); Platelet Count 198 K/mm3 (150-450); RBC Distribution Width SD 41.1 fl (35.1-43.9)
[2019-05-31 12:52] LABS: AST(SGOT) 16 U/L (15-37); Alanine Aminotransfer ALT/SGPT 30 U/L (13-56); Albumin, Serum 3.3 g/dL (3.2-5.0); Alkaline Phosphatase 50 U/L (45-117); Bilirubin, Direct 0.14 mg/dL (0.00-0.30); Globulin 3.7 g/dL (2.2-4.2); Lipase 166 U/L (73-393)
== END | disposition home or self-care (01) ==
LOC: MTLAB 10:02
PROVIDERS: Family Provider Family Medicine; PCP Family Medicine; Referring Provider Internal Medicine Gastroenterology; Visit Provider Internal Medicine Gastroenterology
DX: R10.9 Unspecified abdominal pain (principal)
CPT/HCPCS: 36415; 80076; 83690; 85027; 85652

== ENCOUNTER → 2019-10-30 16:28 | Outpatient (CLI) | payer OTHER, SELFPAY ==
[2019-10-30 17:35] LABS: Hematocrit 38.2 % (37-47); Hemoglobin 12.4 g/dL (12.0-15.0); Mean Corp Hgb Conc 32.5 g/dL (32-36); Mean Corpuscular Hgb 27.9 pg (27.0-32.0); Mean Corpuscular Volume 85.8 fL (81-99); Mean Platelet Vol. 11.4 fl (6.2-12.0); Platelet Count 177 K/mm3 (150-450); RBC Distribution Width CV 13.2 % (11.6-14.6); RBC Distribution Width SD 41.1 fl (35.1-43.9); Red Blood Count 4.45 M/mm3 (4.2-5.4)
[2019-10-30 17:50] LABS: CRP 7.21 mg/L (0.0-3.0)
[2019-10-30 18:03] LABS: Vitamin B12 252 pg/mL (211-911)
== END ==
PROVIDERS: Family Provider Family Medicine; PCP Family Medicine; Referring Provider Internal Medicine Gastroenterology; Visit Provider Internal Medicine Gastroenterology
DX: K50.90 Crohn's disease, unspecified, without complications (principal)
CPT/HCPCS: 36415; 82607; 85027; 86140

== ENCOUNTER → 2020-07-11 | Outpatient (CLI) | payer OTHER, SELFPAY ==
[2020-07-11 10:56] VITALS: BP 126/81; PULSE 81; RESP 16; TEMP 36.3; O2SAT 97; BMI 29.0
[2020-07-11] MEDS: 0.9% Saline Lock 10 ML Syringe IV (11:21)
[2020-07-11 12:39] VITALS: BP 126/81; PULSE 58
== END | disposition home or self-care (01) ==
LOC: MEDOUTP 10:49
PROVIDERS: PCP Family Medicine; Referring Provider Internal Medicine Gastroenterology; Visit Provider Internal Medicine Gastroenterology
DX: K50.90 Crohn's disease, unspecified, without complications (principal)
CPT/HCPCS: 96365; J7050; A4216; J3358

== ENCOUNTER → 2021-04-28 13:52 | Outpatient (CLI) | payer OTHER, SELFPAY ==
[2020-07-11 10:56] VITALS: BMI 29.0
[2021-04-28 16:02] LABS: Hematocrit 39.9 % (37-47); Hemoglobin 13.3 g/dL (12.0-15.0); Mean Corp Hgb Conc 33.3 g/dL (32-36); Mean Corpuscular Volume 89.9 fL (81-99); Mean Platelet Vol. 11.3 fl (6.2-12.0); Platelet Count 182 K/mm3 (150-450); RBC Distribution Width CV 12.4 % (11.6-14.6); RBC Distribution Width SD 40.8 fl (35.1-43.9); Red Blood Count 4.44 M/mm3 (4.2-5.4); White Blood Count 6.7 K/mm3 (4.4-11.0)
[2021-04-28 16:15] LABS: Erythrocyte Sedimentation Rate 6 mm/hr (0-30)
[2021-04-28 16:31] LABS: ALB/GLOB Ratio 0.9 RATIO (0.9-2.4); AST(SGOT) 14 U/L (15-37); Alanine Aminotransfer ALT/SGPT 18 U/L (13-56); Albumin, Serum 3.5 g/dL (3.2-5.0); Alkaline Phosphatase 43 U/L (45-117); Anion Gap 8 (5-15); BUN 10 mg/dL (7-18); BUN/Creat Ratio 10.7 RATIO (10-20); CRP < 2.90 mg/L (0.0-3.0); Calcium,Total 8.9 mg/dL (8.5-10.1); Chloride 108 mmol/L (98-107); Creatinine, Serum 0.93 mg/dL (0.55-1.02); EST Glomerular Filtration Rate 73 mL/min (>60); Est Glom Filt Rate - Afr Amer 88 mL/min (>60); Globulin 3.8 g/dL (2.2-4.2); Glucose 106 mg/dL (74-106); Potassium 3.1 mmol/L (3.5-5.1); Protein, Total 7.3 g/dL (6.4-8.2); Sodium Level 140 mmol/L (136-145)
== END ==
LOC: MTLAB 13:54
PROVIDERS: PCP Family Medicine; Referring Provider Internal Medicine Gastroenterology; Visit Provider Internal Medicine Gastroenterology
DX: K50.90 Crohn's disease, unspecified, without complications (principal)
CPT/HCPCS: 36415; 80053; 85027; 85652; 86140

== ENCOUNTER 2021-11-12 15:20 | Emergency (ER) | payer OTHER, SELFPAY ==
[2021-11-12 15:21] VITALS: BP 150/103; PULSE 99; RESP 16; TEMP 36.4; O2SAT 100; BMI 35.2
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
--- NOTE | 2021-11-12 15:46 | NURSING ---
NO OLD EKGS
[2021-11-12] MEDS: Ondansetron 4 MG/2 ML Vial IV (16:19)
[2021-11-12] MEDS: fentaNYL 100 MCG/2 ML Ampul 50 MCG IV (16:19)
[2021-11-12 16:27] LABS: Absolute Lymphocyte Count 2.09 X10^3/uL (0.83-4.51); Absolute Neutrophil Count 3.7 X10^3/uL (2.0-7.7); Basophil# 0.04 X10^3/uL; Basophil% 0.6 % (0-1); Eosinophil# 0.09 X10^3/uL; Eosinophils% 1.4 % (0-5); Hematocrit 39.1 % (37-47); Hemoglobin 13.5 g/dL (12.0-15.0); Lymphocyte # 2.09 X10^3/ul (0.83-4.51); Lymphocyte % 32.1 % (19-41); Mean Corp Hgb Conc 34.5 g/dL (32-36); Mean Corpuscular Hgb 29.6 pg (27.0-32.0); Mean Corpuscular Volume 85.7 fL (81-99); Monocyte# 0.56 X10^3/uL; Monocyte% 8.6 % (0-10); NRBC Flagged by Analyzer 0 % (0-5); Neutrophil # 3.72 X10^3/uL (2.7-7.7); Platelet Count 192 K/mm3 (150-450); RBC Distribution Width CV 12.5 % (11.6-14.6); RBC Distribution Width SD 39.3 fl (35.1-43.9); Red Blood Count 4.56 M/mm3 (4.2-5.4); White Blood Count 6.5 K/mm3 (4.4-11.0)
[2021-11-12 16:42] LABS: AST(SGOT) 14 U/L (15-37); Alanine Aminotransfer ALT/SGPT 28 U/L (13-56); Albumin, Serum 3.7 g/dL (3.2-5.0); Alkaline Phosphatase 47 U/L (45-117); Anion Gap 10 (5-15); BUN 9 mg/dL (7-18); BUN/Creat Ratio 11.8 RATIO (10-20); Bilirubin, Direct 0.15 mg/dL (0.00-0.30); Calcium,Total 8.9 mg/dL (8.5-10.1); Chloride 107 mmol/L (98-107); Creatinine, Serum 0.76 mg/dL (0.55-1.02); EST Glomerular Filtration Rate 91 mL/min (>60); Est Glom Filt Rate - Afr Amer 110 mL/min (>60); Estimated Creatinine Clearance 99.51 ml/min; Globulin 3.9 g/dL (2.2-4.2); Glucose 101 mg/dL (74-106); Potassium 3.4 mmol/L (3.5-5.1); Protein, Total 7.6 g/dL (6.4-8.2); Sodium Level 141 mmol/L (136-145)
[2021-11-12 17:34] LABS: International Normalized Ratio 0.9; Prothrombin Time (Protime)PT. 11.7 SECONDS (11.7-14.9)
[2021-11-12 17:35] LABS: Partial Thromboplast Time 25.7 Seconds (24.1-36.2)
[2021-11-12 17:39] LABS: Lipase 138 U/L (73-393)
[2021-11-12 17:55] VITALS: BP 157/95; PULSE 75; RESP 22; O2SAT 97
== END 2021-11-12 17:56 | disposition home or self-care (01) ==
PROVIDERS: Emergency Provider Emergency Medicine; PCP Family Medicine; Visit Provider Emergency Medicine
DX: S30.1XXA Contusion of abdominal wall, initial encounter (principal); K50.90 Crohn's disease, unspecified, without complications; S40.022A Contusion of left upper arm, initial encounter; S70.02XA Contusion of left hip, initial encounter; S20.20XA Contusion of thorax, unspecified, initial encounter; V43.52XA Car driver injured in collision with other type car in traffic accident, initial encounter; Y93.9 Activity, unspecified; Y92.9 Unspecified place or not applicable; Z87.891 Personal history of nicotine dependence
CPT/HCPCS: 36415; 71045; 71260; 73090; 73502; 74177; 80048; 80076; 83690; 85025; 85610; 85730; 93005; 96374; 96375; 99283; Q9967; A4216; J2405

== ENCOUNTER 2021-12-03 09:59 | Outpatient (CLI) | payer OTHER, SELFPAY ==
[2021-12-03 12:37] LABS: Hematocrit 40.3 % (37-47); Hemoglobin 13.6 g/dL (12.0-15.0); Mean Corp Hgb Conc 33.7 g/dL (32-36); Mean Corpuscular Hgb 30.1 pg (27.0-32.0); Mean Corpuscular Volume 89.2 fL (81-99); Mean Platelet Vol. 11.5 fl (6.2-12.0); Platelet Count 198 K/mm3 (150-450); RBC Distribution Width CV 12.8 % (11.6-14.6); RBC Distribution Width SD 41.8 fl (35.1-43.9); Red Blood Count 4.52 M/mm3 (4.2-5.4); White Blood Count 6.5 K/mm3 (4.4-11.0)
[2021-12-03 12:59] LABS: ALB/GLOB Ratio 0.9 RATIO (0.9-2.4); AST(SGOT) 14 U/L (15-37); Alanine Aminotransfer ALT/SGPT 22 U/L (13-56); Albumin, Serum 3.6 g/dL (3.2-5.0); Alkaline Phosphatase 44 U/L (45-117); Anion Gap 8 (5-15); BUN 12 mg/dL (7-18); BUN/Creat Ratio 14.2 RATIO (10-20); CRP 3.28 mg/L (0.0-3.0); Calcium,Total 9.1 mg/dL (8.5-10.1); Chloride 111 mmol/L (98-107); Creatinine, Serum 0.84 mg/dL (0.55-1.02); EST Glomerular Filtration Rate 81 mL/min (>60); Est Glom Filt Rate - Afr Amer 98 mL/min (>60); Glucose 111 mg/dL (74-106); Potassium 3.5 mmol/L (3.5-5.1); Protein, Total 7.6 g/dL (6.4-8.2); Sodium Level 140 mmol/L (136-145)
== END 2021-12-03 23:59 | disposition home or self-care (01) ==
PROVIDERS: PCP Family Medicine; Referring Provider Internal Medicine Gastroenterology; Visit Provider Internal Medicine Gastroenterology
DX: K50.90 Crohn's disease, unspecified, without complications (principal)
CPT/HCPCS: 36415; 80053; 85027; 86140

== ENCOUNTER 2021-12-08 08:28 | Outpatient (CLI) | payer OTHER, SELFPAY ==
[2021-12-12 16:45] LABS: Calprotectin, Stool 31 ug/g (0-120)
== END 2021-12-08 23:59 | disposition home or self-care (01) ==
LOC: LABSPEC 08:30
PROVIDERS: PCP Family Medicine; Referring Provider Internal Medicine Gastroenterology; Visit Provider Internal Medicine Gastroenterology
DX: K50.90 Crohn's disease, unspecified, without complications (principal)
CPT/HCPCS: 83993

== ENCOUNTER → 2022-09-16 | Outpatient (CLI) | payer OTHER, SELFPAY ==
[2022-09-16 15:24] LABS: Erythrocyte Sedimentation Rate 13 mm/hr (0-30)
[2022-09-16 15:25] LABS: Hematocrit 41.3 % (37-47); Mean Corp Hgb Conc 33.9 g/dL (32-36); Mean Corpuscular Volume 88.6 fL (81-99); Mean Platelet Vol. 11.5 fl (6.2-12.0); Platelet Count 209 K/mm3 (150-450); RBC Distribution Width CV 12.6 % (11.6-14.6); RBC Distribution Width SD 41.1 fl (35.1-43.9); Red Blood Count 4.66 M/mm3 (4.2-5.4); White Blood Count 6.4 K/mm3 (4.4-11.0)
[2022-09-16 16:06] LABS: CRP < 2.90 mg/L (0.0-3.0)
== END | disposition home or self-care (01) ==
PROVIDERS: PCP Family Medicine; Referring Provider Internal Medicine Gastroenterology; Visit Provider Internal Medicine Gastroenterology
DX: K50.90 Crohn's disease, unspecified, without complications (principal)
CPT/HCPCS: 36415; 85027; 85652; 86140

== ENCOUNTER → 2022-10-14 | Outpatient (CLI) | payer OTHER, SELFPAY ==
[2022-10-18 12:43] LABS: Calprotectin, Stool <16 ug/g (0-120)
== END | disposition home or self-care (01) ==
PROVIDERS: PCP Family Medicine; Referring Provider Internal Medicine Gastroenterology; Visit Provider Internal Medicine Gastroenterology
DX: K50.90 Crohn's disease, unspecified, without complications (principal)
CPT/HCPCS: 83993

== ENCOUNTER → 2023-06-09 | Outpatient (CLI) | payer OTHER, SELFPAY ==
[2023-06-09 17:31] LABS: Hematocrit 42.5 % (37-47); Hemoglobin 14.3 g/dL (12.0-15.0); Mean Corp Hgb Conc 33.6 g/dL (32-36); Mean Corpuscular Hgb 29.9 pg (27.0-32.0); Mean Corpuscular Volume 88.9 fL (81-99); Mean Platelet Vol. 10.9 fl (6.2-12.0); Platelet Count 212 K/mm3 (150-450); RBC Distribution Width CV 12.5 % (11.6-14.6); RBC Distribution Width SD 41.1 fl (35.1-43.9); Red Blood Count 4.78 M/mm3 (4.2-5.4); White Blood Count 8.7 K/mm3 (4.4-11.0)
[2023-06-09 18:14] LABS: ALB/GLOB Ratio 1.1 RATIO (0.9-2.4); AST(SGOT) 17 U/L (15-37); Alanine Aminotransfer ALT/SGPT 28 U/L (13-56); Alkaline Phosphatase 44 U/L (45-117); Anion Gap 6 (5-15); BUN 11 mg/dL (7-18); BUN/Creat Ratio 15.2 RATIO (10-20); CRP < 2.90 mg/L (0.0-3.0); Calcium,Total 8.8 mg/dL (8.5-10.1); Chloride 110 mmol/L (98-107); Creatinine, Serum 0.72 mg/dL (0.55-1.02); EST Glomerular Filtration Rate 96 mL/min (>60); Est Glom Filt Rate - Afr Amer 116 mL/min (>60); Globulin 3.5 g/dL (2.2-4.2); Glucose 92 mg/dL (74-106); Potassium 3.6 mmol/L (3.5-5.1); Protein, Total 7.5 g/dL (6.4-8.2); Sodium Level 139 mmol/L (136-145)
[2023-06-09 18:22] LABS: Erythrocyte Sedimentation Rate 8 mm/hr (0-30)
== END | disposition home or self-care (01) ==
PROVIDERS: PCP Family Medicine; Referring Provider Internal Medicine Gastroenterology; Visit Provider Internal Medicine Gastroenterology
DX: K50.90 Crohn's disease, unspecified, without complications (principal)
CPT/HCPCS: 36415; 80053; 85027; 85652; 86140

== ENCOUNTER → 2024-10-04 | Outpatient (CLI) | payer BC, SELFPAY ==
[2024-10-04 18:07] LABS: Hematocrit 40.3 % (37-47); Hemoglobin 13.9 g/dL (12.0-15.0); Mean Corp Hgb Conc 34.5 g/dL (32-36); Mean Corpuscular Hgb 30.2 pg (27.0-32.0); Mean Corpuscular Volume 87.6 fL (81-99); Platelet Count 196 K/mm3 (150-450); RBC Distribution Width CV 12.8 % (11.6-14.6); White Blood Count 7.7 K/mm3 (4.4-11.0)
[2024-10-04 18:38] LABS: ALB/GLOB Ratio 1.1 RATIO (0.9-2.4); AST(SGOT) 16 U/L (15-37); Alanine Aminotransfer ALT/SGPT 25 U/L (13-56); Albumin, Serum 4.1 g/dL (3.2-5.0); Alkaline Phosphatase 41 U/L (45-117); Anion Gap 6 (5-15); BUN 8 mg/dL (7-18); BUN/Creat Ratio 9.9 RATIO (10-20); CRP < 2.90 mg/L (0.0-3.0); Calcium,Total 9.4 mg/dL (8.5-10.1); Chloride 111 mmol/L (98-107); Creatinine, Serum 0.81 mg/dL (0.55-1.02); EST Glomerular Filtration Rate 84 mL/min (>60); Est Glom Filt Rate - Afr Amer 102 mL/min (>60); Globulin 3.6 g/dL (2.2-4.2); Glucose 104 mg/dL (74-106); Potassium 3.6 mmol/L (3.5-5.1); Protein, Total 7.7 g/dL (6.4-8.2); Sodium Level 139 mmol/L (136-145)
[2024-10-04 19:00] LABS: Erythrocyte Sedimentation Rate 8 mm/hr (0-30)
== END | disposition home or self-care (01) ==
LOC: MTLAB 16:56
PROVIDERS: PCP Family Medicine; Referring Provider Internal Medicine Gastroenterology; Visit Provider Internal Medicine Gastroenterology
DX: K50.90 Crohn's disease, unspecified, without complications (principal)
CPT/HCPCS: 36415; 80053; 85027; 85652; 86140